=== PATIENT | female | born 1960 ===

== ENCOUNTER 2023-06-15 12:43 | Outpatient (AMB) | payer OTHER, SELFPAY ==
--- NOTE | 2023-06-15 12:46 | MHC.OFFWIV ---
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 Arm Injury Intake Note: pt is here for c/o rt arm pain due to fall at home in porch Patient Tobacco Use Status: Never used Tobacco Allergies No Known Allergies Allergy (Verified 06/15/23 12:48) Do you need a note to return to daycare/school/sports/work: Yes HPI HPI Comments History of Present Illness Details She presents to office with R arm pain since Sunday Dog ran away and she tripped and fell onto a chair and tables and hurt arm during fall No HT or LOC L hand dominant + pain and swelling since for pain and used ice and heat on night 1 Used topical patch Movement and palpation worse No PC or SOB She has hx of diabetes but no hx of blood clots or being on blood thinners. [facility] Patient Tobacco Use Status: Never used Tobacco Review of Systems Const Reports body aches (R arm), Denies chills, Denies fatigue and Denies fever(s) ENT Denies neck pain Card Denies chest pain, Denies syncope, Denies rapid heart rate and Denies dyspnea Resp Denies cough and Denies dyspnea Musc Denies back pain, Reports myalgias (R upper arm), Denies neck pain, Denies numbness and Denies tingling Skin/Breast Reports change in pigmentation (Significant bruising R upper arm) Neuro Denies syncope, Denies numbness and Denies tingling Endo Denies fatigue Physical Exam Vital Signs: Last Vital Signs Temp 97.8 F 06/15/23 12:48 Pulse 108 H 06/15/23 12:48 BP 140/80 H 06/15/23 12:48 Pulse Ox 98 06/15/23 12:48 BMI result Body Mass Index 36.9 General: Non-toxic, NAD. Speaking full sentences. Skin: Warm dry throughout. Significant blue/purple skin discoloration and edema to R medial humerus (non-circumfrential) extending from proximal/mid R humerus to elbow. None noted to posterior RUE. No lacerations. No skin discoloration or edema to R shoulder or forearm/hand. Eye: EOMI Neck: No c-spine tenderness. Respiratory: CTA bilaterally. No wheezes, rales or rhonchi Cardiac: RRR. No murmur. Radial pulse RUE 2+ MSK: No tenderness to palpation R clavicle, shoulder, AC joint, lateral humeral head, elbow (medial/lateral epicondyle or ulecranon), forearm, wrist of digits R hand. + tenderness to palpation medial aspect R mid to distal humerus over skin discoloration. + full ROM Flexion/extendion R elbow and wrist. 5/5 special programs director strength RUE. Neurology: A/O. No aphasia or facial droop. Gait without abnormality Psych: Good mood and affect Assessment & Plan Assessment & Plan (1) Arm bruise: Code(s): S40.029A - Contusion of unspecified upper arm, initial encounter (2) Humerus head fracture: Code(s): S42.293A - Other displaced fracture of upper end of unspecified humerus, initial encounter for closed fracture Qualifiers: Encounter type: initial encounter Fracture type: closed Laterality: right Qualified Code(s): S42.291A - Other displaced fracture of upper end of right humerus, initial encounter for closed fracture Plan Patient seen and evaluated. RUE humerus xray ordered. No tenderness to R shoulder or elbow joint. No vascular deficit and pt not on thinners Xray interpretted by myself as: + R humeral head fx without shoulder dislocation Pt informed of imaging results and I showed her xray She was placed in sling Tramaol for pain; can cause lethargy. No alcohol or driving Follow up with ortho ED if worse All questions answered at time of d/c Orders: Orders XR humerus RT Today S40.029A - Contusion of unspecified upper arm, initial encounter Zarina Mata PA-C Referrals Orthopedics Referral S42.293A - Other displaced fracture of upper end of unspecified humerus, initial encounter for closed fracture Zarina Mata PA-C Medications: New tramadol 50 mg PO BID PRN 10 tabs 0RF pain Zarina Mata PA-C tramadol 50 mg PO BID 14 tabs 0RF Kamron Paez MD Coding Level of Care Code New Pt Level 3 (15436) Diagnoses Arm bruise S40.029A Closed fracture of head of right humerus, initial encounter S42.291A Encounter type: initial encounter Fracture type: closed Laterality: right
[2023-06-15 12:48] VITALS: BP 140/80; PULSE 108; TEMP 36.6; O2SAT 98; BMI 36.9
== END 2023-06-15 14:01 | disposition home or self-care (01) ==
PROVIDERS: PCP Internal Medicine; Visit Provider Physician Assistant
DX: S40.029A Contusion of unspecified upper arm, initial encounter (principal); S42.291A Other displaced fracture of upper end of right humerus, initial encounter for closed fracture
CPT/HCPCS: 99203

== ENCOUNTER 2023-06-15 13:04 | Outpatient (REF) | payer OTHER, SELFPAY ==
--- NOTE | ~2023-06-15 | XR_ITS ---
EXAMINATION: XR HUMERUS, RIGHT CLINICAL INFORMATION: Contusion of the upper arm. COMPARISON: None available. TECHNIQUE: AP and lateral views of the right humerus. FINDINGS: There is a proximal humeral fracture with a transverse component through the surgical neck and a sagittally oriented, mildly comminuted component through the greater tuberosity. No displaced lesser tuberosity components are identified. The greater tuberosity fragment is displaced cephalad by 1.5 cm. There is impaction of the femoral neck component of the fracture posteriorly by approximately 1 cm. Bones are osteopenic. Glenoid appears intact. Mild to moderate acromioclavicular osteoarthritis. Soft tissues are swollen at the upper arm with subcutaneous edema. XR/XR humerus RT IMPRESSION: Comminuted proximal humeral fracture with surgical neck and greater tuberosity components, likely a Neer three-part fracture
== END 2023-06-15 13:05 | disposition home or self-care (01) ==
LOC: HO.HMGCX 13:04
PROVIDERS: PCP Internal Medicine; Visit Provider Physician Assistant
DX: S40.021A Contusion of right upper arm, initial encounter (principal)
CPT/HCPCS: 73060

== ENCOUNTER 2023-06-18 13:19 | Outpatient (AMB) | payer OTHER, SELFPAY ==
--- NOTE | 2023-06-18 13:29 | A.OFFVIS_ITS ---
Intake Intake Visit Reasons: FC-FX Right humerus Intake Note: Neida is a 63 year old left hand dominant female who presents today for a evaluation of her right pain, DOI 06/15/23. Patient reports her dog ran away and she tripped and fell onto the table and the chair causing her to injure her right arm. ROM is limited, however its improving every day. Denies numbness and tingling. Allergies No Known Allergies Allergy (Verified 06/18/23 13:33) HPI FC-FX Right humerus HPI Details 63-year-old left hand dominant female rachel mae presents in the office today for an evaluation of right upper extremity pain. The patient [facility]2023 status post a fall on the porch while at home when she hit her arm on the chair and table, which occurred on 06/13/2023. X-rays of the right upper extremity were obtained. The patient was placed in a sling. She reports her ROM is limited, however has been improving daily. She denies numbness or tingling. She states she has been trying to move the shoulder a little but has limited ROM. She reports she is currently unemployed. Patient has no known allergy history. She reports her most recent A1c was 8.0. She reports this is down from an earlier lab of 11. Patient is currently taking, as follows: -Amlodipine 5 mg PO daily -Trulicity 1.5 mg subcut -Fluoxetine 40 mg PO daily -Glipizide ER 10 mg PO BID -Insulin aspart U-100 subcut -Levothyroxine 100 mcg PO -Lisinopril-hydrochlorothiazide 20-25 mg PO daily -Metformin 1,000 mg BID -Rosuvastatin 40 mg PO daily -Tramadol 50 mg PO BID PRN Patient has a medical history, as follows: -Diabetes mellitus, type 2 -History of endometrial cancer 17 years ago. Patient has no known surgical history. Patient has a social history, as follows: -Alcohol current intake [facility] (Updated 06/18/23 @ 13:33 by Bhavesh Aldana) Alcohol intake: current Patient Tobacco Use Status: Never used Tobacco Review of Systems Const All systems reviewed & are unremarkable except as noted in HPI and below Physical Exam Const General: cooperative and no acute distress Orientation/consciousness: patient oriented x3 Resp Effort & Inspection: normal respiratory effort and able to speak in complete sentences Cardio Peripheral pulses: Peripheral pulses 2+ throughout Skin General skin exam: no rashes or lesions noted Neuro General: patient oriented x3 Extrem Other: Right shoulder: Right humerus significant for ecchymosis extending from the bicep to the elbow. Able to preform wrist flexion and extension. Able to perform thumb flexion and extension, finger adduction and abduction. Sensation intact. Radial pulse intact. Assessment & Plan Assessment & Plan (1) Humerus head fracture: Comment: right Code(s): S42.293A - Other displaced fracture of upper end of unspecified humerus, initial encounter for closed fracture Qualifiers: Encounter type: initial encounter Fracture type: closed Laterality: right Qualified Code(s): S42.291A - Other displaced fracture of upper end of right humerus, initial encounter for closed fracture Plan Ms. Leija is a 63-year-old left hand dominant female who presents in the office today for an evaluation of right upper extremity pain. The patient presents to [facility] on 06/15/2023 status post a fall on the porch while at home when she hit her arm on the chair and table, which occurred on 06/13/2023. X-rays of the right upper extremity were obtained. The patient was placed in a sling. She reports her ROM is limited, however has been improving daily. She denies numbness or tingling. She states she has been trying to move the shoulder a little but has limited ROM. She reports she is currently unemployed. Patient has no known allergy history. She reports her most recent A1c was 8.0. She reports this is down from an earlier lab of 11. Patient is currently taking, as follows: -Amlodipine 5 mg PO daily -Trulicity 1.5 mg subcut -Fluoxetine 40 mg PO daily -Glipizide ER 10 mg PO BID -Insulin aspart U-100 subcut -Levothyroxine 100 mcg PO -Lisinopril-hydrochlorothiazide 20-25 mg PO daily -Metformin 1,000 mg BID -Rosuvastatin 40 mg PO daily -Tramadol 50 mg PO BID PRN Patient has a medical history, as follows: -Diabetes mellitus, type 2 -History of endometrial cancer 17 years ago. Patient has no known surgical history. Patient has a social history, as follows: -Alcohol current intake Dr. Ortiz was available to see the patient with me while in the office today and a collaborative treatment plan was made. I discussed in detail the procedure and what to expect pre and post operatively. We discussed the risks, benefits and alternatives to the surgery as well as the rehabilitation course. The risks; which include, but are not limited to infection, bleeding, nerve injury, ongoing pain, swelling, and stiffness, perioperative risk of injury to bones and soft tissues, and blood clots. I have answered all questions and with their understanding they have consented to move forward with a right proximal humerus ORIF to be performed by Dr. Parker Ortiz. Follow up will be 2 weeks for her post operative appointment with Dr. Ortiz in the office, or sooner if needed. X-rays of the right upper extremity, obtained on 06/15/2023, revealed: Comminuted proximal humeral fracture with surgical neck and greater tuberosity components, likely a Neer three-part fracture. Patient Instructions: Scribed for Fabiola Mo PA-C by Arianna Anaya medical communication specialist, on 06/18/2023 at 1:22 pm, EST. Coding Level of Care Code New Pt Level 4 (97868) Diagnoses Closed fracture of head of right humerus, initial encounter S42.291A Encounter type: initial encounter Fracture type: closed Laterality: right
== END 2023-06-18 14:27 | disposition home or self-care (01) ==
PROVIDERS: PCP Internal Medicine; Visit Provider Physician Assistant
DX: S42.291A Other displaced fracture of upper end of right humerus, initial encounter for closed fracture (principal)
CPT/HCPCS: 99204

== ENCOUNTER → 2023-06-18 13:19 | Outpatient (BNVA) | payer OTHER, SELFPAY | PROVIDERS: PCP Internal Medicine; Visit Provider Physician Assistant ==

== ENCOUNTER 2023-06-20 09:57 | Day surgery (SDC) | payer OTHER, SELFPAY ==
[2023-06-20] VITALS (7 sets, daily range): BP systolic 116–143; BP diastolic 57–77; PULSE 87–100; RESP 14–16; TEMP 36–36.4; O2SAT 96–100; BMI 37.7
--- NOTE | ~2023-06-20 | FL_ITS ---
EXAMINATION: XR FLUOROSCOPY WITH IMAGES CLINICAL INFORMATION: Fractured right humerus. COMPARISON: None available. TECHNIQUE: Fluoroscopy Supervised By: Dr. Parker Ortiz. Fluoroscopy Time: 0.2 minutes. Cumulative Dose: 10.0 mGy. DAP: 0.175 Gycm2. Images: 4. FINDINGS: Images demonstrate plate and screws in the right proximal humerus with improved alignment of the right humeral neck and greater tuberosity fractures. FL/FL guidance in OR IMPRESSION: Fluoroscopy guidance for ORIF of right humerus fracture
--- NOTE | 2023-06-20 07:54 | P.CONAN_ITS ---
[facility] Active Problems Active Problems: All Active Problems (Updated 06/18/23 @ 14:18 by Arianna Anaya) Humerus head fracture (Acute) Arm bruise (Acute) Past Medical History Medical History Depression HTN (hypertension) Diabetes High cholesterol Surgical History Surgical History H/O: hysterectomy History of Problems with Anesthesia: No Social History Social History Alcohol intake: current Patient Tobacco Use Status: Never used Tobacco Use of substances other than those prescribed or required for medical reasons: No Are you DNR?: No Advance Directives: No Advance Directives Information Provided: Yes Meds Allergies Allergy/AdvReac Type Severity Reaction Status Date / Time No Known Allergies Allergy Verified 06/18/23 13:33 Home Medications Medication Instructions Recorded Confirmed Last Taken Type amlodipine 5 mg tablet 5 mg PO DAILY 06/15/23 06/20/23 Unknown History dulaglutide 1.5 mg/0.5 mL mg subcut 06/15/23 06/09/23 History subcutaneous pen injector (Trulicity) fluoxetine 40 mg capsule 40 mg PO DAILY 06/15/23 Unknown History glipizide 10 mg tablet, extended 10 mg PO BID 06/15/23 06/20/23 Unknown History release 24 hr insulin aspart U-100 100 unit/mL subcut 06/15/23 Unknown History subcutaneous solution (Novolog U-100 Insulin aspart) levothyroxine 100 mcg tablet mcg PO 06/15/23 Unknown History lisinopril 20 1 tab PO DAILY 06/15/23 Unknown History mg-hydrochlorothiazide 25 mg tablet metformin 1,000 mg tablet 1,000 mg PO BID 06/15/23 Unknown History pen needle, diabetic 31 gauge x #1,200 ea 06/15/23 Unknown History 3/16 (BD Ultra-Fine Mini Pen Needle) rosuvastatin 40 mg tablet 40 mg PO DAILY 06/15/23 Unknown History Exam Airway Mallampati Class: II TM Dist: >3cm Neck ROM: Full Loose/Missing/Broken Teeth: No Heart: RRR Lungs: CTA Assessment and Plan Assessment Anesthesia Assessment: Anesthesia Plan Discussed and Chart Reviewed Final Anesthetic Review History of Problems with Anesthesia: No NPO: Yes ASA Class: III Final Preanesthetic Review: Meds/Allgs Chart Reviewed, Consent Obtained/Reviewed and Anes Risks/Benef Reviewed Patient Risk: Intermediate Procedure Risk: Intermediate Anesthetic Plan Anesthetic Plan: GA Disposition: Standard PACU
[2023-06-20 11:50] LABS: Glucose, Whole Blood 232 mg/dL (60-115)
[2023-06-20] MEDS: Lactated Ringers 1,000 ML 50 ML IVCONT (12:00)
--- NOTE | 2023-06-20 13:50 | MHC.SHP ---
Pre-Procedural Eval Section A Date of Service: 06/20/23 The patient is an INPATIENT: No Changes since office visit: No Cold of Flu in the past 2 weeks, No New Medical Problems, No Changes in Medication and No Patient answered all questions The History & Physical has been completed within 30 days and I have reviewed it.: Yes Section B Chief Complaint: Unspecified fracture of upper end of right humerus Allergies: Allergies Allergy/AdvReac Type Severity Reaction Status Date / Time No Known Allergies Allergy Verified 06/18/23 13:33 Plan I have reviewed the history and physical and performed a pertinent physical examination on my patient. No changes have occurred unless specified. Time Spent With Patient Time: Total time managing care of this patient today ____ minutes.
--- NOTE | 2023-06-20 18:09 | P.BOP_ITS ---
Brief Operative Note Date of Service: 06/20/23 Pre-op diagnosis: RIGHT PROXIMAL HUMERUS FRACTURE Post-op diagnosis: same Procedure: ORIF RIGHT PROXIMAL HUMERUS FRACTURE Implants: KINZA PROXIMAL HUMERUS LOCKING PLATE Surgeon: Parker Ortiz MD Anesthesia: GETA Was an Chemical Waste Management Technician used for this Procedure?: Yes Chemical Waste Management Technician: Fabiola Mo Estimated blood loss (mL): 125 IV fluids (mL): 1,000 Pathology: none sent Condition: stable Disposition: PACU
[2023-06-20 18:29] LABS: Glucose, Whole Blood 270 mg/dL (60-115)
--- NOTE | 2023-06-22 15:50 | W.PM.OPN ---
Operative Note Operative Note Date of Service: 06/20/23 Narrative: Date of Service: 06/20/23 Pre-op diagnosis: RIGHT PROXIMAL HUMERUS FRACTURE Post-op diagnosis: same Procedure: ORIF RIGHT PROXIMAL HUMERUS FRACTURE Implants: KINZA PROXIMAL HUMERUS LOCKING PLATE Surgeon: Parker Ortiz MD Anesthesia: GETA Was an Safety Grooving Machine Operator used for this Procedure?: Yes Safety Grooving Machine Operator: Fabiola Mo Estimated blood loss (mL): 125 IV fluids (mL): 1,000 Pathology: none sent Condition: stable Disposition: PACU Procedure in detail: Patient was brought to the operating room and placed in the beach chair position on the surgical table. She was prepped and draped in standard sterile fashion and a time out was called to identify proper site, proper procedure and IV antibiotics per weight were administered. I began by making a deltopectoral incision over the right shoulder. The clavipectoral fascia was identified and the cepahalic vein retracted. Digital dissection was taken down to the proximal humerus. The greater tuberosity fracture was palpated. Blunt retractor was placed posterior to the head and the fracture fragments were cleaned up. The cuff was attached to the tuberosity fragments. I used 2 Fiberwire sutures through the cuff and tuberosity fragments in a locked fashion. Once I had control of the tuberosiity fragments a small [place] locking plate was applied to the humeral shaft. Using standard AO technique and biplanar fluoroscopy I placed locking screws into the head and non locking in to the shaft. The tuberosity fragments were captured with some of the locking screws and the ends of the fiberwire suture were tied to the plate. I took the shoulder through a full ROM and was satisfied with the stability. Biplanar fluoro confirmed this and all instrumentation was removed. Layered closure was performed with tiffany on the skin.
== END 2023-06-20 19:17 | disposition home or self-care (01) ==
PROVIDERS: PCP Internal Medicine; Visit Provider Orthopaedic Surgery
PROC: (CPT 23615; principal; 2023-06-20 12:40)
DX: S42.291A Other displaced fracture of upper end of right humerus, initial encounter for closed fracture (principal); W18.09XA Striking against other object with subsequent fall, initial encounter; E11.9 Type 2 diabetes mellitus without complications; I10 Essential (primary) hypertension; E78.5 Hyperlipidemia, unspecified; Y93.89 Activity, other specified; Y92.018 Other place in single-family (private) house as the place of occurrence of the external cause; Y99.9 Unspecified external cause status; Z90.710 Acquired absence of both cervix and uterus
CPT/HCPCS: 23615; 82947; C1713; J0690; J1100; J2250; J2405; J2704; J3010

== ENCOUNTER → 2023-06-20 09:57 | Outpatient (BNV) | payer OTHER, SELFPAY | PROVIDERS: PCP Internal Medicine; Visit Provider Orthopaedic Surgery | DX: S42.232A 3-part fracture of surgical neck of left humerus, initial encounter for closed fracture (principal); S42.251A Displaced fracture of greater tuberosity of right humerus, initial encounter for closed fracture | CPT/HCPCS: 23615 ==

== ENCOUNTER 2023-07-05 12:46 | Outpatient (AMB) | payer OTHER, SELFPAY ==
--- NOTE | 2023-07-05 12:58 | A.OFFVIS_ITS ---
Intake Intake Visit Reasons: Rt Humerus ORIF 06/20 NE Intake Note: Neida 63 yr old female presents today for her P/O visit for her right humerus ORIF from [facility] 06/20/23. States she is doing well and has no concerns today. Allergies No Known Allergies Allergy (Verified 07/05/23 12:59) HPI Rt Humerus ORIF 06/20 NE HPI Details 63-year-old female who presents in the o ffice today 15 days status post right proximal humerus open reduction and internal fixation, which was performed on 06/20/[address] Ortiz. The patient reports she is doing well with no concerns for today. PFSH Medical History Depression HTN (hypertension) Diabetes High cholesterol Surgical History H/O: hysterectomy Social History Alcohol intake: current Patient Tobacco Use Status: Never used Tobacco Review of Systems Const All systems reviewed & are unremarkable except as noted in HPI and below Physical Exam Const General: cooperative, healthy appearing and no acute distress Resp Effort & Inspection: normal respiratory effort and able to speak in complete sentences Cardio Rate: regular rate Peripheral pulses: Peripheral pulses 2+ throughout GI Palpation (GI): Soft to palpation Skin Lesions: no lesions Rashes: no rashes Extrem Other: Right shoulder: Incision site is clean, dry, and intact. Lapel intact. No surrounding erythema or drainage. No signs of infection. Forward flexion and abduction to 45 degrees. External rotation to neutral. Assessment & Plan Assessment & Plan (1) Humerus head fracture: Comment: right proximal humerus ORIF 06/20/2023 NE Code(s): S42.293A - Other displaced fracture of upper end of unspecified humerus, initial encounter for closed fracture Qualifiers: Encounter type: initial encounter Fracture type: closed Laterality: right Qualified Code(s): S42.291A - Other displaced fracture of upper end of right humerus, initial encounter for closed fracture Plan Ms. Leija is a 63-year-old female who presents in the office today 15 days status post right proximal humerus open reduction and internal fixation, which was performed on 06/20/[address] Ortiz. The patient reports she is doing well with no concerns for today. The patient will remain in the sling until 6 weeks post-op. I have placed a referral to physical therapy to work on gentle ROM. Follow up will be in [address] Ortiz, or sooner if needed. X-rays of the right shoulder which were obtained while in the office today and were reviewed by me, Fabiola Mo PA-C, revealed intact orthopedic hardware with routine healing. Orders: Orders PT Evaluation and Treatment Today S42.293A - Other displaced fracture of upper end of unspecified humerus, initial encounter for closed fracture XR shoulder RT min 2V Today M25.519 - Pain in unspecified shoulder Patient Instructions: Scribed for Fabiola Mo PA-C by Arianna Anaya medical device sales, on 07/05/2023 at 12:48 pm, EST. Coding Level of Care Code Global (17748) Diagnoses Closed fracture of head of right humerus, initial encounter S42.291A Encounter type: initial encounter Fracture type: closed Laterality: right
== END 2023-07-05 13:32 | disposition home or self-care (01) ==
PROVIDERS: PCP Internal Medicine; Visit Provider Physician Assistant
DX: S42.291A Other displaced fracture of upper end of right humerus, initial encounter for closed fracture (principal)
CPT/HCPCS: 99024

== ENCOUNTER 2023-07-05 12:58 | Outpatient (REF) | payer OTHER, SELFPAY ==
--- NOTE | ~2023-07-05 | XR_ITS ---
EXAMINATION: XR SHOULDER, RIGHT CLINICAL INFORMATION: Pain in right shoulder COMPARISON: X-ray the right humerus May 2023 TECHNIQUE: AP and lateral views of the right humerus FINDINGS: Postoperative changes with plate and screw fixation noted along the proximal humerus crossing the previously noted proximal humerus fracture. Overall improved alignment. Skin tiffany in place. Hardware in place. Mild to moderate osteoarthritis of acromioclavicular joint unchanged. XR/XR shoulder RT min 2V IMPRESSION: Postoperative changes related to ORIF of proximal humerus fracture with improved alignment compared with the preoperative exam.
== END 2023-07-05 12:59 | disposition home or self-care (01) ==
LOC: HO.HOSX 12:58
PROVIDERS: Visit Provider Physician Assistant
DX: S42.291D Other displaced fracture of upper end of right humerus, subsequent encounter for fracture with routine healing (principal); X58.XXXD Exposure to other specified factors, subsequent encounter
CPT/HCPCS: 73030

== ENCOUNTER 2023-08-02 07:41 | Outpatient (REF) | payer OTHER, SELFPAY ==
--- NOTE | ~2023-08-02 | XR_ITS ---
EXAMINATION: XR SHOULDER, RIGHT CLINICAL INFORMATION: Shoulder pain COMPARISON: Right humerus 06/15/2023, right shoulder 07/05/2023 TECHNIQUE: Three views of the right shoulder. FINDINGS: Again seen is plate and screw device status post ORIF of a right proximal humeral fracture. Since the prior study, surgical tiffany have been removed. No definite fusion of fracture fragments is seen at this time. No new fractures. XR/XR shoulder RT min 2V IMPRESSION: Status post ORIF right proximal humeral fracture.
== END 2023-08-02 07:42 | disposition home or self-care (01) ==
LOC: HO.HOSX 07:41
PROVIDERS: Visit Provider Orthopaedic Surgery
DX: S42.201D Unspecified fracture of upper end of right humerus, subsequent encounter for fracture with routine healing (principal); X58.XXXD Exposure to other specified factors, subsequent encounter; Z98.890 Other specified postprocedural states
CPT/HCPCS: 73030

== ENCOUNTER 2023-08-02 13:02 | Outpatient (AMB) | payer OTHER, SELFPAY ==
--- NOTE | 2023-08-02 13:26 | MHC.OFFVIS ---
Intake Intake Visit Reasons: PO- Rt Humerus ORIF 06/20/23 NE Intake Note: Neida is a 63 year old female who presents today for a post operative appointment s/p Right Humerus ORIF 06/20/2023. Patient reports that she is doing well, she continues to work with physical therapy and has no concerns Allergies No Known Allergies Allergy (Verified 07/05/23 12:59) HPI PO- Rt Humerus ORIF 06/20/23 NE HPI Details 6 weeks post op with no complaints. Doing PT PFSH Medical History Depression HTN (hypertension) Diabetes High cholesterol Surgical History H/O: hysterectomy Social History Alcohol intake: current Patient Tobacco Use Status: Never used Tobacco Physical Exam Extrem Other: SILT right deltoid 90 deg abduction with scapular recruitment Results Reviewed Results Reviewed: I personally reviewed relevant radiographs. Stable hardware and stable fracture reduction Assessment & Plan Assessment & Plan (1) Proximal humerus fracture: Code(s): S42.209A - Unspecified fracture of upper end of unspecified humerus, initial encounter for closed fracture Plan: Continue PT and no resistance f/u 6 weeks Orders: Orders XR shoulder RT min 2V 08/02/23 M25.519 - Pain in unspecified shoulder Coding Level of Care Code Global (57175) Diagnoses Proximal humerus fracture S42.209A
== END 2023-08-02 13:39 | disposition home or self-care (01) ==
PROVIDERS: PCP Internal Medicine; Visit Provider Orthopaedic Surgery
DX: S42.209A Unspecified fracture of upper end of unspecified humerus, initial encounter for closed fracture (principal)
CPT/HCPCS: 99024

== ENCOUNTER 2023-09-11 10:00 | Outpatient (RCR) | payer MEDICAID, OTHER, SELFPAY ==
--- NOTE | 2023-07-10 12:55 | MHC.PT.EP ---
[facility] [place] Office [place] Office [place] Office [address] Yudith Hernandez [address] [phone] F: [phone] F: [phone] F: [phone] F: [phone] Physical Therapy Plan of Care Date of Evaluation: 07/10/23 Date of Surgery: 06/20/2023 Diagnosis: This is a 63 yo female presenting to skilled PT with a script for displaced fx upper end of humerus. Assessment: This is a 63 yo female presenting to skilled PT with a script for displaced fx upper end of humerus. Patient original DOI was 06/13 when she presented to the walk in clinic with R arm pain after she tripped and fell over a chair and table when he dog ran away. She did not have any head trauma or LOC. She was referred to [facility] ortho after a positive x-ray for: IMPRESSION: Comminuted proximal humeral fracture with surgical neck and greater tuberosity components, likely a Neer three-part fracture. After seeing ortho patient underwent ORIF from [facility] 06/20/23. Patient saw ortho for her first follow up on 07/05/23. Per ortho note: The patient will remain in the sling until 6 weeks post-op. I have placed a referral to physical therapy to work on gentle ROM. Follow up will be in [address] Ortiz, or sooner if needed. X-rays of the right shoulder which were obtained while in the office today and were reviewed by me, Fabiola Mo PA-C, revealed intact orthopedic hardware with routine healing. She returns to ortho on 08/02/23. Assessment reveals pain that ranges from up to a 5/10 at the worst. Patient demos decreased R shoulder and cervical ROM, strength of R shoulder both expected s/p surgery. She demos impaired posture with forward head and rounded shoulders and decreased functional tolerance for ADLs, driving and sleeping. Based on functional limitations, impaired QOL and pain tolerance patient is a good candidate for skilled PT 2x/wk for 8wks. Frequency and Duration: The patient will be seen 2x/wk for 8wks Short Term Goals: (In 4 weeks) Demo I with HEP Improve shoulder AAROM to at least 120 degs, abduction to at least 90 degs, ER to 40 Demo proper scapular recruitment with appropriate shoulder strengthening exercises Understand surgery, safety and precautions Prison Goals: (in 8 wks) Improve shoulder nonpainful AROM to almost near equal B Demo at least 4/5 MMT for shoulder flexion, abduction and ER, IR Improve SPADI by at least 10 points Improve overall functional QOL by at least 75% Treatment Plan: Modalities to reduce pain, spasms and effusion. Manual therapy to restore motion and function. Therapeutic exercise to improve strength and flexibility. Neuromuscular re-education for posture and balance. Therapeutic activities to return to functional activities of daily living. Electronically signed by: Joan Maxwell PT Please sign and return to therapist. Thank you for your referral.
--- NOTE | 2023-10-09 09:39 | MHC.PT.DC ---
[facility] [place] [facility] [place] [facility] [place] [facility] [address] Yudith Hernandez [address] [phone] F: [phone] F: [phone] F: [phone] F: [phone] Physical Therapy Discharge Report Diagnosis: This is a 63 yo female presenting to skilled PT with a script for displaced fx upper end of humerus. Date of Surgery: 06/20/2023 Date of Evaluation: 07/10/23 Date of Discharge: 10/09/23 Treatments to Date: 13 Cancellations to Date: 0 No Shows to Date: 0 Discharge Status: Achieved Goals Improved Function Independent with HEP Discharge Summary: 09/11/23: Patient demos WFL ROM and strength. She has returned to her normal ADLs, housework, sleeping and driving. She is I in her HEP and is ready for DC at this time. Chart was closed after 30 days, she has met her goals and is appropriate for DC at this time. Electronically signed by: Joan Maxwell PT Please sign and return to therapist. Thank you for your referral.
== END 2023-10-09 09:39 | disposition home or self-care (01) ==
LOC: HO.PTCHIC 10:00
PROVIDERS: PCP Internal Medicine; Visit Provider Physician Assistant
DX: S42.291D Other displaced fracture of upper end of right humerus, subsequent encounter for fracture with routine healing (principal)
CPT/HCPCS: 97110; 97140; 97162

== ENCOUNTER 2023-09-17 07:02 | Outpatient (REF) | payer SELFPAY ==
--- NOTE | ~2023-09-17 | XR_ITS ---
EXAMINATION: XR SHOULDER, RIGHT CLINICAL INFORMATION: Pain. COMPARISON: Radiographs dated 08/02/2023. TECHNIQUE: AP external rotation, Grashey, scapular Y, and axillary views of the right shoulder. FINDINGS: There is mild bony demineralization. An intact orthopedic a plate and fixator screws are applied to the proximal right humerus. The surgical neck and greater tuberosity fracture lines are now faint. The glenohumeral joint is intact. The acromioclavicular and coracoclavicular intervals are normal. 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 No soft tissue calcification or foreign body is seen. There is no right pneumothorax. XR/XR shoulder RT min 2V IMPRESSION: There is stable alignment status-post ORIF of a Neer 3-part fracture of the proximal right humerus. No hardware failure or loosening is seen.
== END 2023-09-17 07:03 | disposition home or self-care (01) ==
LOC: HO.HOSX 07:02
PROVIDERS: Visit Provider Orthopaedic Surgery
DX: M25.511 Pain in right shoulder (principal)
CPT/HCPCS: 73030; 99212

== ENCOUNTER 2023-09-17 10:09 | Outpatient (AMB) | payer MEDICAID, SELFPAY ==
--- NOTE | 2023-09-17 08:29 | A.OFFVIS_ITS ---
Intake Intake Visit Reasons: OV- Rt Humerus ORIF 06/20/23 NE Intake Note: Neida is a 63 year old female who presents to the office today for a Rt humerus ORIF 06/20/23. Pt states she is doing well and finished PT last week. Pt states she will occasionally have a little pain but nothing like before. Allergies No Known Allergies Allergy (Verified 09/17/23 10:34) HPI OV- Rt Humerus ORIF 06/20/23 NE HPI Details 3 mo s/p ORIF right proximal humerus She has been attending PT and following her restrictions. she completed her PT last week and says she has only minimal occasional pain No other complaints. [facility] Medical History Depression HTN (hypertension) Diabetes High cholesterol Surgical History (Updated 09/17/23 @ 10:38 by Zarina Mcmahan MA) History of open reduction and internal fixation (ORIF) procedure (06/20/23) H/O: hysterectomy Social History Alcohol intake: current Patient Tobacco Use Status: Never used Tobacco Review of Systems Const All systems reviewed & are unremarkable except as noted in HPI and below Physical Exam Const General: no acute distress, alert and awake Orientation/consciousness: patient oriented x3 HEENT Head: Yes normocephalic and Yes atraumatic Eyes EOM: EOMs intact bilaterally Resp Effort & Inspection: normal respiratory effort and able to speak in complete sentences Cardio Jugular venous distension: no JVD Skin General skin exam: turgor normal Rashes: no rashes Neuro General: patient oriented x3 Extrem Other: inc c/d/i Full ROM No pain with abduction Neg EC Psych Appearance: grossly normal Affect: normal affect Attitude: cooperative Results Reviewed Results Reviewed: I personally reviewed relevant radiographs. Stable appearance right proximal humerus ORIF Assessment & Plan Assessment & Plan (1) Proximal humerus fracture: Code(s): S42.209A - Unspecified fracture of upper end of unspecified humerus, initial encounter for closed fracture Plan: 3 mo s/p ORIF right proximal humerus doing well. No heavy lifting for ~ 3 months. May follow up as needed Plan Prepared for Parker Ortiz MD by Ed Bello, medical affairs manager, on 09/17/23 at 9:00 AM, EST. Orders: Orders XR shoulder RT min 2V Today M25.519 - Pain in unspecified shoulder Coding Level of Care Code Global (69784) Diagnoses Proximal humerus fracture S42.209A
== END 2023-09-17 10:50 | disposition home or self-care (01) ==
PROVIDERS: PCP Internal Medicine; Visit Provider Orthopaedic Surgery
DX: S42.209A Unspecified fracture of upper end of unspecified humerus, initial encounter for closed fracture (principal)
CPT/HCPCS: 99024